=== PATIENT | female | born 1945 | race Hispanic/Latino ===

== ENCOUNTER 2017-01-05 06:08 | Inpatient (IN) | payer MEDICARE ==
[2017-01-05 06:17] VITALS: BMI 34.7
--- NOTE | 2017-01-05 07:18 | ED PDOC ---
Arrival/HPI - General Chief Complaint: Lower Extremity Problem/Injury Time Seen by Provider: 01/05/17 07:01 Historian: Patient, Family (Son) - History of Present Illness Time/Duration: Other (Last night) Symptom Onset: Gradual Symptom Course: Worsening Severity Level: Moderate Activities at Onset: Rest Associated Symptoms (Text): 01/05/17 07:15 Patient reports that she is unable to ambulate since last night. She states that she was sitting in a recliner last evening and her son had to get her into bed. She tried to get up at approximately 1 AM to go to the bathroom and was unable to do so. She is currently unable to ambulate. She arrived via ambulance. There is a history of Parkinson's disease. She has been taking her medication. Son reports that last week she was at her sister's house and was fine. There was a fall several weeks ago with a minor injury to her left knee, but she has been ambulating since then. No cough congestion or URI. No chest pain palpitations or dyspnea. No abdominal pain nausea or vomiting. No genitourinary symptoms. No fever or chills. Past Medical History - Cardiac Hx Cardiac Disorders: No - Pulmonary Hx Respiratory Disorders: No - Neurological Hx Parkinson's Disease: Yes - HEENT Hx HEENT Disorder: No - Renal Hx Renal Disorder: No - Endocrine/Metabolic Hx Endocrine Disorders: No - Hematological/Oncological Hx Blood Disorders: No - Integumentary Hx Dermatological Disorder: No - Musculoskeletal/Rheumatological Hx Musculoskeletal Disorders: No - Gastrointestinal Hx Gastrointestinal Disorders: No - Genitourinary/Gynecological Hx Genitourinary Disorders: No - Psychiatric Hx Psychophysiologic Disorder: No Hx Substance Use: No Family/Social History - Physician Review Nursing Documentation Reviewed: Yes Family/Social History: Unknown Family HX Smoking Status: Never Smoked Hx Alcohol Use: No Hx Substance Use: No Allergies/Home Meds Allergies/Adverse Reactions: Allergies Penicillins Allergy (Verified 01/05/17 06:17) RASH childhood Home Medications: Home Meds Medication Instructions Recorded Confirmed Amantadine [Amantadine HCl] 100 mg PO BID 01/05/17 01/05/17 Carbidopa/Levodopa 25/100 mg 1 tab PO BID 01/05/17 01/05/17 [Sinemet] Carbidopa/Levodopa 50/200 CR 1 tab PO DAILY 01/05/17 01/05/17 [Sinemet] Carbidopa/Levodopa [Sinemet Cr 25 150 mg PO QID 01/05/17 01/05/17 mg-100 mg] Pkamipexole 1.5 mg PO TID 01/05/17 01/05/17 Review of Systems - Physician Review All systems were reviewed & negative as marked: Yes - Review of Systems Constitutional: Fatigue. absent: Fevers Respiratory: Normal Cardiovascular: Normal Gastrointestinal: Normal Genitourinary Female: Normal Skin: Normal Neurological: Gait Changes. absent: Headache, Dizziness, Focal Weakness, Speech Changes, Facial Droop, Disequilibrium, Seizure Physical Exam Vital Signs Temp Pulse Resp BP Pulse Ox 01/05/17 07:16 68 18 137/69 96 01/05/17 07:11 97.4 F L 01/05/17 06:19 97.8 F 74 18 156/80 H 95 Temperature: Afebrile Blood Pressure: Hypertensive Pulse: Regular Respiratory Rate: Normal Appearance: Positive for: Well-Appearing, Non-Toxic, Comfortable Pain Distress: None Mental Status: Positive for: Alert and Oriented X 3 - Systems Exam Head: Present: Atraumatic, Normocephalic Pupils: Present: PERRL Extroacular Muscles: Present: EOMI Conjunctiva: Present: Normal Ears: Present: NORMAL TM, Normal Canal. No: Erythema Mouth: Present: Moist Mucous Membranes Pharnyx: No: ERYTHEMA, EXUDATE, TONSILS ENLARGED Neck: Present: Normal Range of Motion Respiratory/Chest: Present: Clear to Auscultation, Good Air Exchange, Decreased Breath Sounds. No: Respiratory Distress, Accessory Muscle Use Cardiovascular: Present: Regular Rate and Rhythm, Normal S1, S2. No: Murmurs Abdomen: Present: Normal Bowel Sounds. No: Tenderness, Distention, Peritoneal Signs, Rebound, Guarding Back: Present: Normal Inspection Upper Extremity: Present: Normal Inspection. No: Cyanosis, Edema Lower Extremity: Present: Normal Inspection. No: Edema Neurological: Present: GCS=15, CN II-XII Intact, Speech Normal, Motor Func Grossly Intact, Normal Sensory Function, Normal Cerebellar Funct. No: Gait Normal Skin: Present: Warm, Dry, Normal Color. No: Rashes Psychiatric: Present: Alert, Oriented x 3, Normal Insight, Normal Concentration Medical Decision Making ED Course and Treatment: 01/05/17 07:29 EKG shows normal sinus rhythm rate approximately [address] or T-wave changes 01/05/17 08:[address]A Funes. Patient is unable to ambulate. Appears to be exacerbation of Parkinson's disease. No signs of infection. She will be placed on a [facility] floor. Consultation with neurology. - Lab Interpretations Lab Results: 01/05/17 07:15 01/05/17 07:15 Lab Results 01/05/17 08:00: Urine Color Yellow, Urine Appearance Clear, Urine pH 8.0, Ur Specific [place] 1.015, Urine Protein Negative, Urine Glucose (UA) Negative, Urine Ketones Negative, Urine Blood Negative, Urine Nitrate Negative, Urine Bilirubin Negative, Urine Urobilinogen 0.2, Ur Leukocyte Esterase Negative 01/05/17 07:15: Sodium 143, Potassium 4.0, Chloride 109 H, Carbon Dioxide 29, Anion Gap 9 L, BUN 13, Creatinine 0.7, Est GFR ( Amer) > 60, Est GFR (Non -Af Amer) > 60, Random Glucose 99, Calcium 8.9, Total Bilirubin 0.9, AST 15, ALT 15, Alkaline Phosphatase 74, Lactate Dehydrogenase 362, Total Creatine Kinase 28 L, Troponin I 0.01, Total Protein 6.4, Albumin 3.5, Globulin 2.9, Albumin/Globulin Ratio 1.2 01/05/17 07:15: WBC 5.9, RBC 4.03, Hgb 13.4, Hct 39.2, MCV 97.3, MCH 33.3, MCHC 34.2, RDW 13.6, Plt Count 242, MPV 9.1, Gran % 77.8 H, Lymph % (Auto) 15.0 L, [place] % (Auto) 4.7, Eos % (Auto) 2.2, Baso % (Auto) 0.3, Gran # 4.60, Lymph # 0.9 L, [place] # 0.3, Eos # 0.1, Baso # 0.02 - RAD Interpretation Radiology Orders: 01/05/17 07:11 CHEST PORTABLE [RAD] Stat Chest 1 view shows no infiltrate effusion or cardiomegaly. 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 Ulcer: No History Surgical Site Infection Following: None - Disposition Have Diagnosis and Disposition been Completed?: Yes Diagnosis: Parkinsons disease, Weakness Disposition: HOSPITALIZED Disposition Time: 08:20 Patient Plan: Observation Condition: FAIR Discharge Instructions (ExitCare): Weakness (ED) Referrals: Srini Funes MD [Primary Care Provider] - Follow up with primary
[2017-01-05 07:30] LABS: ADD MANUAL DIFF? NO
[2017-01-05 07:40] LABS: BASO # 0.02 K/mm3 (0.0-2.0); BASO % 0.3 % (0.0-3.0); EOS # 0.1 (0.0-0.7); EOS % 2.2 % (1.5-5.0); GRAN % 77.8 % (50.0-68.0); HEMATOCRIT 39.2 % (36.0-48.0); LYMPH # 0.9 (1.2-3.4); MEAN CELL VOLUME 97.3 fL (80.0-105.0); MEAN CORPUSCULAR HEMOGLOBIN 33.3 pg (25.0-35.0); MEAN CORPUSCULAR HGB CONC 34.2 g/dl (31.0-37.0); MEAN PLATELET VOLUME 9.1 fl (7.0-11.0); MONO # 0.3 (0.1-0.6); MONO % 4.7 % (1.0-6.0); PLATELET COUNT 242 10^3/uL (120.0-450.0); RED CELL DISTRIBUTION WIDTH 13.6 % (11.5-14.5); WHITE BLOOD COUNT 5.9 10^3/ul (4.5-11.0)
[2017-01-05 07:44] LABS: ALB/GLOB RATIO 1.2 (1.1-1.8); ALKALINE PHOSPHATASE 74 U/L (38-133); ALT/SGPT 15 U/L (7-56); AST/SGOT 15 U/L (15-39); BILIRUBIN,TOTAL 0.9 mg/dL (0.2-1.3); BLOOD UREA NITROGEN 13 mg/dL (7-21); CALCIUM 8.9 mg/dL (8.4-10.5); CARBON DIOXIDE 29 mmol/L (21-33); CHLORIDE 109 mmol/L (98-107); GFR AFRICAN-AMERICAN > 60; GLUCOSE,RANDOM 99 mg/dL (70-110); SODIUM 143 mmol/L (132-148); TOTAL PROTEIN 6.4 g/dL (5.8-8.3)
[2017-01-05 07:59] LABS: TROPONIN I 0.01 ng/mL
[2017-01-05 08:06] LABS: URINE BILIRUBIN NEGATIVE (NEGATIVE); URINE BLOOD NEGATIVE (NEGATIVE); URINE GLUCOSE (UA) NEGATIVE (NEGATIVE); URINE KETONE NEGATIVE (NEGATIVE); URINE LEUKOCYTE ESTERASE NEGATIVE Leu/uL (NEGATIVE); URINE PROTEIN NEGATIVE mg/dL (<30 mg/dL); URINE UROBILINOGEN 0.2 E.U./dL (<1 E.U./dL)
[2017-01-05 08:12] LABS: URINE APPEARANCE CLEAR (CLEAR); URINE COLOR YELLOW (YELLOW)
--- NOTE | 2017-01-05 08:28 | RAD ---
HISTORY: weak COMPARISON: No prior. FINDINGS: LUNGS: The right lung is clear. There is left basilar atelectasis/ scarring. PLEURA: No significant pleural effusion identified, no pneumothorax apparent. CARDIOVASCULAR: Normal. OSSEOUS STRUCTURES: Status post posterior spinal fixation in the lumbar spine. Surgical clips in the right upper quadrant are related to prior cholecystectomy. VISUALIZED UPPER ABDOMEN: Normal. OTHER FINDINGS: None. IMPRESSION: Left basilar atelectasis/scarring. No acute findings.
[2017-01-05] MEDS: Carbidopa/Levodopa 25/100 CR PO SCH ×2 (10:15→18:11)
--- NOTE | 2017-01-05 11:20 | HP ---
HISTORY OF PRESENT ILLNESS: The patient is a 71-year-old female currently in the Emergency Room who was alert and oriented x 3, complains of inability to ambulate. The patient says she is unable to am bulate since last night. She was sitting in a recliner and tried to get up and was unable to do so, and her son helped her to get into bed. She tried to get up at approximately 1 a.m. to go to the [facility] and was unable to do so. The patient presented to the Emergency Room with the above complaint. REVIEW OF SYSTEMS: Otherwise, is entirely unremarkable. ALLERGIES: PENICILLIN. PAST MEDICAL HISTORY: Remarkable for Parkinson's. SOCIAL HISTORY: No history of substance or alcohol abuse. FAMILY HISTORY: Noncontributory. PHYSICAL EXAMINATION: VITAL SIGNS: Temperature of 97.8, pulse rate of 74, blood pressure 137/69, respiratory rate of 18, a nd an O2 saturation of 96% on room air. HEENT: PERRLA, EOMI. No icterus present. NECK: Supple with a full range of motion. No bruits or adenopathy are appreciated. LUNGS: Clear to auscultation and percussion bilaterally. HEART: Regular rate and rhythm. No murmurs, rubs, or gallops. ABDOMEN: Soft. It is benign. It is nontender. There is no organomegaly. Bowel sounds are normoac tive. EXTREMITIES: Show no edema. Good DP and PT pulses. Motor is 5/5 throughout. NEUROLOGIC: There are no focal motor deficits. LABORATORY VALUES: WBC of 5.9, hemoglobin and hematocrit of 13.4 and 39.2. Chemistry shows normal w ith the exception of a total CK which is 28 which is low. Chest x-ray is unremarkable. Urinalysis i s completely normal. PROVISIONAL DIAGNOSES: 1. Parkinson's. 2. Inability to ambulate. Dr. Goyal, her neurologist, has been consulted and will come in to see the patient. Srini Funes MD cc: [id number] TT: 01/05/2017 11:19:37 nj
[2017-01-05] MEDS ORDERED: Pneumococcal 23-Valent Vaccine IM ONE (14:26)
[2017-01-05] MEDS: Carbidopa/Levodopa/Entacapone 37.5mg-150mg-200mg PO SCH ×2 (18:11→22:29)
--- NOTE | 2017-01-05 19:03 | CARD ---
APPROVED REPORT EKG Measurement Heart [id number] OR [id number] <Conclusion> Normal sinus rhythm Normal ECG
[2017-01-05] MEDS: Carbidopa/Levodopa 50/200 CR PO SCH (22:29)
[2017-01-06] MEDS: Carbidopa/Levodopa/Entacapone 37.5mg-150mg-200mg PO SCH ×5 (06:22→21:58)
[2017-01-06 08:00] LABS: BLOOD UREA NITROGEN 9 mg/dL (7-21); CALCIUM 9.1 mg/dL (8.4-10.5); CARBON DIOXIDE 29 mmol/L (21-33); CHLORIDE 106 mmol/L (98-107); GFR AFRICAN-AMERICAN > 60; GLUCOSE,RANDOM 87 mg/dL (70-110); POTASSIUM 3.9 mmol/L (3.6-5.0); SODIUM 141 mmol/L (132-148)
[2017-01-06 08:44] LABS: MEAN CELL VOLUME 97.1 fL (80.0-105.0); MEAN CORPUSCULAR HEMOGLOBIN 32.8 pg (25.0-35.0); MEAN CORPUSCULAR HGB CONC 33.8 g/dl (31.0-37.0); MEAN PLATELET VOLUME 9.1 fl (7.0-11.0); RED CELL DISTRIBUTION WIDTH 13.6 % (11.5-14.5)
[2017-01-06] MEDS: Carbidopa/Levodopa 25/100 CR PO SCH ×2 (11:10→17:47)
[2017-01-06] MEDS: Carbidopa/Levodopa 50/200 CR PO SCH (21:58)
--- NOTE | 2017-01-06 22:46 | CON ---
DATE: 01/06/2017 HISTORY OF PRESENT ILLNESS: This is a 71-year-old female with a past medical history of Parkinson di britney and came to the hospital because she was unable to ambulate. The patient was sitting in a recl iner last evening and her son had to get her into the bed. She tried to get up approximately 1:00 a. m. in the bathroom and was unable to do so and unable to ambulate. The patient came here via ambulan ce and I was called to evaluate the patient. PAST MEDICAL HISTORY: Parkinson disease. ALLERGIES: PENICILLIN. HOME MEDICATIONS: The patient is on carbidopa/levodopa and Sinemet. REVIEW OF SYSTEMS: A 10-point review of systems was negative. PHYSICAL EXAMINATION: VITAL SIGNS: Blood pressure 156/80. HEENT: Normocephalic, atraumatic. NECK: Supple. NEUROLOGIC: Awake, alert, oriented x 3. No aphasia. Cranial nerves II through XII were tested. Pu pils reactive. EOM intact. Visual magana full. No facial asymmetry. Tongue midline. Motor examin ation: Moves all the extremities spontaneously. Deep tendon reflexes 1+. Both plantars downgoing. Sensory appears intact. Cerebellar and gait deferred. LABORATORY DATA: WBC 5.9, hemoglobin 13.4, hematocrit 39.2, platelet 242. Sodium 143, potassium 4, chloride is 109, CO2 of 29, glucose 99, BUN 13, creatinine 0.7. IMPRESSION: Parkinson disease and I do not find any rigidity and needs physical therapy for am bulation. Will followup. Buck Watt MD cc: [id number] TT: 01/06/2017 22:45:42 Confirmation # [id number] Dictation # [id number]
[2017-01-07] MEDS: Carbidopa/Levodopa/Entacapone 37.5mg-150mg-200mg PO SCH ×5 (05:36→21:38)
[2017-01-07 07:16] LABS: HEMATOCRIT 39.5 % (36.0-48.0); MEAN CELL VOLUME 96.1 fL (80.0-105.0); MEAN CORPUSCULAR HEMOGLOBIN 32.8 pg (25.0-35.0); MEAN CORPUSCULAR HGB CONC 34.2 g/dl (31.0-37.0); MEAN PLATELET VOLUME 9.2 fl (7.0-11.0); RED CELL DISTRIBUTION WIDTH 13.6 % (11.5-14.5); WHITE BLOOD COUNT 5.6 10^3/ul (4.5-11.0)
[2017-01-07 07:36] LABS: BLOOD UREA NITROGEN 14 mg/dL (7-21); CARBON DIOXIDE 28 mmol/L (21-33); CHLORIDE 106 mmol/L (98-107); GFR AFRICAN-AMERICAN > 60; GLUCOSE,RANDOM 110 mg/dL (70-110); POTASSIUM 3.7 mmol/L (3.6-5.0); SODIUM 140 mmol/L (132-148)
[2017-01-07] MEDS: Carbidopa/Levodopa 25/100 CR PO SCH ×2 (09:16→17:35)
--- NOTE | 2017-01-07 13:27 | PN ---
DATE: 01/07/2017 SUBJECTIVE: The patient seen and examined at bedside on the general medical melendez. No acute events o vernight. She remains afebrile and hemodynamically stable. The patient is more ambulatory since adm ission and is participating with physical therapy. Recommendations have been made for TCU placement. Otherwise, the patient states she feels okay and offers no complaints. OBJECTIVE: VITAL SIGNS: Temperature 97.5, pulse 78, blood pressure 126/82, respiratory rate 20, oxygen saturati on 97% on room air. GENERAL: No apparent distress. HEENT: PERRL, EOMI. No scleral icterus. NECK: No JVD, no bruits. LUNGS: Clear to auscultation. CARDIOVASCULAR: Regular rate and rhythm. Normal S1 and S2. No murmurs, rubs, or gallops. ABDOMEN: Normoactive bowel sounds, soft, nontender, nondistended. EXTREMITIES: No edema. NEUROLOGIC: Awake, alert and oriented x 3. No focal motor deficits. LABORATORY DATA: CBC reviewed and unremarkable. BMP reviewed and unremarkable. ASSESSMENT: The patient is a 71-year-old woman with past medical history of Parkinson disease, who p resented to [facility] with a several day history of increasing low back pain and inabili ty to ambulate. PLAN: 1. Parkinson disease. Input from Dr. Watt of neurology noted and appreciated. The patient remain s on her home medications. Continue with PT/OT. An order has been placed for TCU evaluation. 2. Prophylaxis. Gastrointestinal prophylaxis not indicated as patient is eating. Deep venous throm bosis prophylaxis not indicated as patient is ambulatory. CODE STATUS: Full code. Denver Funes MD cc: [id number] TT: 01/07/2017 13:26:25 Confirmation # [id number] Dictation # [id number] en
--- NOTE | 2017-01-07 17:11 | PN ---
DATE: 01/07/2017 CHIEF COMPLAINT: Follow up for Parkinson's and inability to ambulate. SUBJECTIVE: The patient seen and examined at bedside. She is doing much better. She is slow to amb ulate, has some mild parkinsonism features. She is on her Sinemet CR as well as ____ Mirapex. No ac zuni events overnight. ALLERGIES: PENICILLIN. PAST MEDICAL HISTORY: History of Parkinson disease and chronic deconditioned state. SOCIAL HISTORY: No illicit drug use, smoking, or ETOH abuse. FAMILY HISTORY: Noncontributory. REVIEW OF SYSTEMS: A 14-point review of systems negative except as listed in the HPI. PHYSICAL EXAMINATION: VITAL SIGNS: Temperature of 97.5, pulse rate is 78, blood pressure 126/82, respiratory rate 20, oxyg en 97% on room air. GENERAL: The patient is sitting up in bed, no acute distress. HEENT: Atraumatic, normocephalic. PERRLA. Extraocular muscles intact. NECK: Supple, no JVD, no adenopathy noted. LUNGS: Clear to auscultation. No adventitious sounds. HEART: S1, S2, normal rate and rhythm. No murmurs, rubs, or gallops. ABDOMEN: Soft, nontender, nondistended. Bowel sounds are present. EXTREMITIES: No clubbing, no cyanosis. Peripheral pulses 2+ felt bilaterally. NEUROLOGIC: The patient is alert, oriented to person, place, month and year. Recall at 5 minutes 0/ 3, poor attention span, slow thought process, cranial nerves II through XII are intact. MOTOR: Slight increased tone throughout. Mild cogwheel rigidity at the wrists. Moves all extremiti es equally, COORDINATION: [id number] intact. SENSORY: Light touch, pinprick, proprioception, vibrations intact. DTRs are 2+ throughout and 1 at the ankles. GAIT: Deferred for now. LABORATORIES: Sodium is 140, potassium ____.7, chloride 106, carbon dioxide 28, BUN of 14, creatinin e 0.7, random glucose 90. ASSESSMENT AND PLAN: This is a 71-year-old woman with history of Parkinson disease on Stalevo and Si nemet-CR as well as Mirapex who follows with neurologist, Dr. Goyal, came in with inability to ambu late and generalized weakness. Currently, at this time her parkinsonism has played a role in her darlene bility to ambulate and make her deconditioned. I feel at this time she will benefit from subacute re hab for coordination and gait and muscle strengthening. At this time, continue with her Sinemet-CR a s well as her Stalevo and Mirapex provided by her neurologist. Continue her present medical manageme nt. No further neurological workup needed at this time. We will sign off. Please reconsult if nece ssary. Thank you for this consult. Madhu Watt MD cc: [id number] TT: 01/07/2017 17:10:40 Confirmation # [id number] Dictation # [id number] jn
[2017-01-07] MEDS: Carbidopa/Levodopa 50/200 CR PO SCH (21:38)
[2017-01-08] MEDS: Carbidopa/Levodopa/Entacapone 37.5mg-150mg-200mg PO SCH ×5 (06:44→21:42)
[2017-01-08 09:20] LABS: HEMATOCRIT 41.2 % (36.0-48.0); MEAN CELL VOLUME 95.4 fL (80.0-105.0); MEAN CORPUSCULAR HEMOGLOBIN 33.1 pg (25.0-35.0); MEAN CORPUSCULAR HGB CONC 34.7 g/dl (31.0-37.0); MEAN PLATELET VOLUME 9.2 fl (7.0-11.0); RED CELL DISTRIBUTION WIDTH 13.4 % (11.5-14.5); WHITE BLOOD COUNT 6.8 10^3/ul (4.5-11.0)
[2017-01-08 09:36] LABS: BLOOD UREA NITROGEN 12 mg/dL (7-21); CALCIUM 9.1 mg/dL (8.4-10.5); CARBON DIOXIDE 25 mmol/L (21-33); CHLORIDE 107 mmol/L (95-110); GFR AFRICAN-AMERICAN > 60; GLUCOSE,RANDOM 189 mg/dL (70-110); POTASSIUM 4.1 mmol/L (3.6-5.0); SODIUM 139 mmol/L (132-148)
--- NOTE | 2017-01-08 09:40 | PN ---
DATE: 01/08/2017 SUBJECTIVE: The patient seen and examined at bedside on the general medical melendez. No acute events o vernight. She remains afebrile and hemodynamically stable. Per discussion with the nursing staff, t he patient does have some moments of intermittent confusion, particularly overnight, but otherwise th ere have been no acute issues. Input from Dr. Watt is also noted and recommendations are made for continued rehab and patient is pending TCU evaluation. OBJECTIVE: VITAL SIGNS: Temperature 98.6, pulse 84, blood pressure 156/74, respiratory rate 18, oxygen saturati on 94% on room air. GENERAL: No apparent distress. HEENT: PERRL. EOMI. No scleral icterus. NECK: No JVD, no bruits. LUNGS: Clear to auscultation. CARDIOVASCULAR: Regular rate and rhythm, normal S1 and S2. No murmurs, rubs or gallops. ABDOMEN: Normoactive bowel sounds, soft, nontender, nondistended. EXTREMITIES: No edema. NEUROLOGIC: Awake, alert and oriented x 3. No focal motor deficits. LABORATORY DATA: Morning labs are pending. ASSESSMENT: The patient is a 71-year-old woman with Parkinson disease who presents to [facility] with a several day history of increasing low back pain and inability to ambulate, who is now clinically improving and pending transitional care unit evaluation. PLAN: 1. Parkinson disease. Input from Dr. Watt of neurology noted and appreciated. Continue with curr ent medications. Continue with PT/OT. 2. Prophylaxis. GI prophylaxis not indicated as patient is eating. Continue with Venodynes for DVT prophylaxis. CODE STATUS: Full code. Denver Funes MD cc: [id number] TT: 01/08/2017 09:39:50 Confirmation # [id number] Dictation # [id number] mn
[2017-01-08] MEDS: Carbidopa/Levodopa 25/100 CR PO SCH ×2 (11:25→17:33)
[2017-01-08] MEDS: Carbidopa/Levodopa 50/200 CR PO SCH (21:42)
[2017-01-09] MEDS: Carbidopa/Levodopa/Entacapone 37.5mg-150mg-200mg PO SCH ×5 (05:48→21:32)
[2017-01-09 08:06] LABS: HEMATOCRIT 40.5 % (36.0-48.0); MEAN CELL VOLUME 98.3 fL (80.0-105.0); MEAN CORPUSCULAR HEMOGLOBIN 33.7 pg (25.0-35.0); MEAN CORPUSCULAR HGB CONC 34.3 g/dl (31.0-37.0); MEAN PLATELET VOLUME 9.2 fl (7.0-11.0); RED CELL DISTRIBUTION WIDTH 13.3 % (11.5-14.5); WHITE BLOOD COUNT 6.8 10^3/ul (4.5-11.0)
[2017-01-09 08:12] LABS: BLOOD UREA NITROGEN 14 mg/dL (7-21); CARBON DIOXIDE 27 mmol/L (21-33); CHLORIDE 107 mmol/L (95-110); GFR AFRICAN-AMERICAN > 60; GLUCOSE,RANDOM 103 mg/dL (70-110); SODIUM 140 mmol/L (132-148)
--- NOTE | 2017-01-09 09:02 | PN ---
DATE: 01/09/2017 SUBJECTIVE: The patient is seen and examined at bedside on the general medical melendez. No acute event s overnight. She remains afebrile and hemodynamically stable and is pending evaluation for TCU for c ontinued physical therapy. OBJECTIVE: VITAL SIGNS: Temperature 98.8, pulse 68, blood pressure 118/65, respiratory rate 20, oxygen saturati on 95% on room air. GENERAL: No apparent distress. HEENT: PERRL. EOMI. No scleral icterus. NECK: No JVD, no bruits. LUNGS: Clear to auscultation. CARDIOVASCULAR: Regular rate and rhythm, normal S1, S2. No murmurs, rubs or gallops. ABDOMEN: Normoactive bowel sounds, soft, nontender, nondistended. EXTREMITIES: No edema. NEUROLOGIC: Awake, alert, and oriented x 3. No focal motor deficits. LABORATORY DATA: CBC unremarkable. BMP pending. ASSESSMENT: The patient is a 71-year-old woman with Parkinson's disease, who presented to [facility] with a several-day history of increasing low back pain and inability to ambulate, who is clinically improving and pending TCU evaluation for continued physical therapy. PLAN: 1. Parkinson's disease. Input from Dr. Watt of neurology noted and appreciated. Continue with cu rrent medications. Continue with PT/OT. 2. Prophylaxis. GI prophylaxis is not indicated, as the patient is eating. Continue with venodynes for DVT prophylaxis. CODE STATUS: Full code. Denver Funes MD cc: [id number] TT: 01/09/2017 09:01:39 Confirmation # [id number] Dictation # [id number] jn
[2017-01-09] MEDS: Carbidopa/Levodopa 25/100 CR PO SCH ×2 (10:19→18:37)
[2017-01-09] MEDS: Carbidopa/Levodopa 50/200 CR PO SCH (21:28)
[2017-01-10] MEDS: Carbidopa/Levodopa/Entacapone 37.5mg-150mg-200mg PO SCH ×4 (05:52→18:36)
--- NOTE | 2017-01-10 09:08 | PN ---
DATE: 01/10/2017 SUBJECTIVE: The patient is seen and examined at bedside on the general medical melendez. Overnight the patient was noted to become agitated and quite confused, requiring placement into a cyndee. This morning she is sitting up in her chair, appears much more calm, awake, and alert and offers no complaints. OBJECTIVE: VITAL SIGNS: Temperature 98, pulse 75, blood pressure 151/88, respiratory rate 20, oxygen saturation 96% on room air. GENERAL: No apparent distress. HEENT: PERRL. EOMI. No scleral icterus. NECK: No JVD, no bruits. LUNGS: Clear to auscultation. CARDIOVASCULAR: Regular rate and rhythm. Normal S1 and S2. ABDOMEN: Normoactive bowel sounds, soft, nontender, nondistended. EXTREMITIES: No edema. NEUROLOGIC: Awake, alert and oriented x 3. No focal motor deficits. LABORATORY DATA: Morning labs are pending. ASSESSMENT: The patient is a 71-year-old woman with Parkinson's disease, who presents to [facility] with a several-day history of increasing low back pain and inability to ambulate secondary to exacerbation of her underlying Parkinson's disease who is presently clinically improving and pending TCU evaluation for continued physical therapy. PLAN: 1. Parkinson's disease. Input from Dr. Watt noted and appreciated. No further neurological interventions are indicated. Continue with current regimen. Continue with PT/OT. 2. Prophylaxis. GI prophylaxis is not indicated, as the patient is eating. Continue with venodynes for DVT prophylaxis. CODE STATUS: Full code. Denver Funes MD cc: [id number] TT: 01/10/2017 09:08:16 Confirmation # [id number] Dictation # [id number] jn SAM
[2017-01-10] MEDS: Carbidopa/Levodopa 25/100 CR PO SCH ×2 (09:55→18:36)
--- NOTE | 2017-01-10 14:06 | CP.PCM.PN ---
Subjective - Date & Time of Evaluation Date of Evaluation: 01/10/17 Time of Evaluation: 11:30 - Subjective Subjective: responded to code star. pt with hx of parkinsonism was walkin and lost balance and sat down on the floor. pt is latvian speaking, denies complaints.pt did not hit head ,no loss of conciousness. Objective - Vital Signs/Intake and Output Vital Signs (last 24 hours): Temp Pulse Resp BP Pulse Ox 98.0 F 75 20 151/88 H 96 01/10/17 07:44 01/10/17 07:44 01/10/17 07:44 01/10/17 07:44 01/10/17 07:44 Intake and Output: 01/10/17 01/10/17 06:59 18:59 Intake Total 240 360 Output Total 150 Balance 90 360 - Medications Medications: Current Medications Amantadine HCl (Amantadine 100 Mg Cap) 100 mg PO BID [facility] Last Admin: 01/10/17 09:55 Dose: 100 mg Carbidopa/Levodopa (Sinemet Cr) 1 tab PO BID [facility] Last Admin: 01/10/17 09:55 Dose: 1 tab Carbidopa/Levodopa (Sinemet Cr) 1 tab PO HS [facility] Last Admin: 01/09/17 21:28 Dose: 1 tab Carbidopa/Levodopa/Entacapone (Stalevo 150) 1 tab PO TID HERMAN Pramipexole Dihydrochloride (Mirapex) 1.5 mg PO TID [facility] Last Admin: 01/10/17 09:55 Dose: 1.5 mg Quetiapine Fumarate (Seroquel) 12.5 mg PO AMHS [facility] PRN Reason: Protocol - Labs Labs: 01/09/17 07:30 01/09/17 07:30 - Constitutional Appears: No Acute Distress - Head Exam Head Exam: NORMOCEPHALIC - Eye Exam Eye Exam: Normal appearance Pupil Exam: PERRL - ENT Exam ENT Exam: Mucous Membranes Moist - Neck Exam Neck Exam: Full ROM - Respiratory Exam Respiratory Exam: Clear to Ausculation Bilateral, NORMAL BREATHING PATTERN - Cardiovascular Exam Cardiovascular Exam: RRR, +S1, +S2 - GI/Abdominal Exam GI & Abdominal Exam: Soft, Normal Bowel Sounds - Extremities Exam Extremities Exam: Full ROM, Normal Inspection - Neurological Exam Neurological Exam: Awake, CN II-XII Intact, Oriented x3 - Psychiatric Exam Psychiatric exam: Normal Affect - Skin Skin Exam: Dry, Warm Assessment and Plan - Assessment and Plan (Free Text) Assessment: s/p fall no injury. hx of Parkinsonism. Plan: fall precautions.
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
[2017-01-10] MEDS: Carbidopa/Levodopa 50/200 CR PO SCH (22:20)
[2017-01-11 08:26] LABS: HEMATOCRIT 40.7 % (36.0-48.0); MEAN CELL VOLUME 98.3 fL (80.0-105.0); MEAN CORPUSCULAR HEMOGLOBIN 33.6 pg (25.0-35.0); MEAN CORPUSCULAR HGB CONC 34.2 g/dl (31.0-37.0); RED CELL DISTRIBUTION WIDTH 13.5 % (11.5-14.5); WHITE BLOOD COUNT 5.4 10^3/ul (4.5-11.0)
[2017-01-11 08:54] LABS: BLOOD UREA NITROGEN 15 mg/dL (7-21); CALCIUM 9.1 mg/dL (8.4-10.5); CARBON DIOXIDE 29 mmol/L (21-33); CHLORIDE 108 mmol/L (98-107); GFR AFRICAN-AMERICAN > 60; GLUCOSE,RANDOM 93 mg/dL (70-110); POTASSIUM 4.1 mmol/L (3.6-5.0); SODIUM 141 mmol/L (132-148)
--- NOTE | 2017-01-11 09:26 | PN ---
DATE: 01/11/2017 SUBJECTIVE: The patient seen and examined at bedside on the general medical melendez. Overnight, the kaylah barrera was noted to be persistently confused and agitated. She remains in a waist [place]. The patient was also evaluated by Dr. Linsey Sanches and started on Ativan and Seroquel. Otherwise, this morni ng, the patient offers no new complaints. OBJECTIVE: VITAL SIGNS: Temperature 98.4, pulse 60, blood pressure 137/70, respiratory rate 18, oxygen saturati on 96% on room air. GENERAL: No apparent distress. HEENT: PERRL. EOMI. No scleral icterus. NECK: No JVD, no bruits. LUNGS: Clear to auscultation. CARDIOVASCULAR: Regular rate and rhythm, normal S1, S2. ABDOMEN: Normoactive bowel sounds. Soft, nontender, nondistended. EXTREMITIES: No edema. NEUROLOGIC: Awake, alert, oriented to self and place. No focal motor deficits. LABORATORY DATA: CBC reviewed and unremarkable. BMP pending. ASSESSMENT: The patient is a 71-year-old woman with Parkinson's disease, who presented to [facility] with a several day history of low back pain and inability to ambulate secondary to exace rbation of her underlying Parkinson's disease, who is demonstrating clinical improvement in her mobil ity, but whose hospital course has been complicated by increased delirium and agitation. PLAN: 1. Parkinson disease. Input from Dr. Watt noted and appreciated. No new/further neurologic inter ventions have been recommended. Will continue with current regimen. Continue with PT/OT. 2. Altered mental status, etiology likely secondary to delirium/sundowning versus possible medicatio n-induced delirium. Input from Dr. Linsey Sanches noted and greatly appreciated. Continue with cu rrent medications as per Dr. Linsey Sanches. 3. Prophylaxis. GI prophylaxis not indicated as patient is eating. Continue with Venodynes for DVT prophylaxis. CODE STATUS: Full code. Denver Funes MD cc: [id number] TT: 01/11/2017 09:25:26 Confirmation # [id number] Dictation # [id number] mn
[2017-01-11] MEDS: Carbidopa/Levodopa 25/100 CR PO SCH ×2 (10:05→18:22)
[2017-01-11] MEDS: Carbidopa/Levodopa/Entacapone 37.5mg-150mg-200mg PO SCH ×3 (10:05→18:23)
--- NOTE | 2017-01-11 13:34 | PN ---
DATE: 01/11/2017 Shortly, patient is a 71-year-old female with long history of Parkinson's. The patient was seen yesterday for evaluation of psychotic symptoms. The patient was on higher dose of Parkinsonian drugs, which could be giving patient psychotic symptoms. This commercial lines underwriter initiated Seroquel 12.5 mg twi ce a day as well as Ativan. The patient was seen today and patient presented much better. The patie nt remembered this commercial lines underwriter. The patient is alert and oriented, pleasant, cooperative. Reported that she feels better. There are no signs of psychosis. As per report from the nursing staff, patient sl ept through the night and does not have any aggressive or agitated behavior. VITAL SIGNS: Stable. Temperature 98.4, pulse is 60, blood pressure 137/70, respirations 18. MEDICATIONS: Reviewed. The patient is on amantadine 100 mg twice a day, Sinemet, Ativan 0.5 mg twic e a day and at the nighttime, Seroquel 12.5 mg twice a day. LABORATORIES: Reviewed from today, seems to be within normal limits. MENTAL STATUS EXAMINATION: As this commercial lines underwriter described above, the patient is pleasant and cooperative, alert and oriented. No signs of psychosis or agitation. Intermittent eye contact. Speech was leigh ann l rate, tone, quality, and quantity. Mood described "I feel fine." Affect was more reactive, mood c ongruent. The patient denied visual, auditory, or tactile hallucinations. There is no agitation or aggression. The patient presents much better today. Insight and judgment fair. Impulses are well c ontrolled. IMPRESSION: Rule out medication induced psychosis, rule out delirium. This commercial lines underwriter is waiting for ur inalysis to be taken because as per nursing staff, patient has full and dark urine sometimes urinary tract infection could also give psychotic symptoms and delirium. Meanwhile, continue current management for another 24 hours. We will start weaning patient off of Se roquel and we will see if patient will be responding well to that. If patient will start exhibiting the same symptoms, patient is to continue on the same regimen. We will follow up and advise edmund ward. Thank you very much for letting me participate in the care of your patient. Linsey Sanches MD cc: [id number] TT: 01/11/2017 13:34:10 Confirmation # [id number] Dictation # [id number] en
[2017-01-11] MEDS: Carbidopa/Levodopa 50/200 CR PO SCH (23:51)
[2017-01-12 08:48] LABS: HEMATOCRIT 41.1 % (36.0-48.0); MEAN CELL VOLUME 99.3 fL (80.0-105.0); MEAN CORPUSCULAR HEMOGLOBIN 33.3 pg (25.0-35.0); MEAN CORPUSCULAR HGB CONC 33.6 g/dl (31.0-37.0); MEAN PLATELET VOLUME 9.5 fl (7.0-11.0); RED CELL DISTRIBUTION WIDTH 13.5 % (11.5-14.5); WHITE BLOOD COUNT 5.6 10^3/ul (4.5-11.0)
[2017-01-12 08:52] LABS: BLOOD UREA NITROGEN 19 mg/dL (7-21); CALCIUM 8.9 mg/dL (8.4-10.5); CARBON DIOXIDE 28 mmol/L (21-33); CHLORIDE 106 mmol/L (95-110); GFR AFRICAN-AMERICAN > 60; GLUCOSE,RANDOM 85 mg/dL (70-110); POTASSIUM 3.7 mmol/L (3.6-5.0); SODIUM 140 mmol/L (132-148)
[2017-01-12] MEDS: Carbidopa/Levodopa 25/100 CR PO SCH ×2 (09:36→18:03)
[2017-01-12] MEDS: Carbidopa/Levodopa/Entacapone 37.5mg-150mg-200mg PO SCH ×3 (09:37→18:03)
--- NOTE | 2017-01-12 09:48 | PN ---
DATE: 01/12/2017 The patient is in room 563, bed 1. The patient is a 71-year-old female, confused, in no acute distress. There have been no acute events overnight. PHYSICAL EXAMINATION: VITAL SIGNS: Temperature of 97.4, pulse rate of 63, blood pressure 152/86, respiratory rate of 20 wi th an O2 saturation of 100% on room air. HEENT: PERRLA. EOMI. NECK: Supple with a full range of motion and no bruits. LUNGS: Clear to auscultation and percussion bilaterally. HEART: Regular rate and rhythm. No murmurs, rubs, or gallops. ABDOMEN: Soft. It is nontender. There is no organomegaly, and bowel sounds are normoactive. EXTREMITIES: Show no deformities or edema. NEUROLOGIC: The patient is intact. LABORATORY WORK: Shows a WBC of 5.6, hemoglobin of 13.8 and ____ 41.1. Chemistry is entirely within normal limits. BUN and creatinine are 19 and 0.7. Random glucose is 85. IMPRESSION: 1. Parkinson's disease. 2. Senile dementia. Currently, looking for placement for the patient in a rehab facility. Srini Funes MD cc: [id number] TT: 01/12/2017 09:47:28 Confirmation # [id number] Dictation # [id number] marley
--- NOTE | 2017-01-12 10:59 | PN ---
DATE: 01/12/2017 SUBJECTIVE: The patient was followed up today. The patient's mental status is improving. The patie nt's Parkinson symptoms are improving. The patient does not have any tremor. The patient knows that she is in the hospital, knows the date, does remember this keno writer. The patient reported that she sl ept well last night. The patient reported that staff treats her well. There are no signs of paranoi a, psychotic symptoms are much improving, but at the same time, the patient is still on waist [place]. The patient reported that her family is supportive and they come and visit her. This keno writer has imp ression that patient had medication-induced psychosis because the patient was on high dose of cristela onian drugs which could increase the dopamine level and give psychotic symptoms, which the patient ex perienced 2 days ago. At present moment, the patient is awaiting for subacute rehabilitation facilit . The patient needs to be off waist [place] for at least 24 hours. VITAL SIGNS: This keno writer reviewed vital signs. Vital signs seem to be stable. Temperature 97.4, bl ood pressure 152/86, respirations 20, oxygen saturation is 100. MEDICATIONS: Reviewed. The patient is on amantadine 100 mg twice a day, levodopa/carbidopa and Sine met 3 times a day. The patient also is on Stalevo 150 mg 3 times a day, Ativan 0.5 mg 3 times a day was implemented, Mirapex 1.5 mg 3 times a day and Seroquel 12.5 mg in the morning time and at the nig httime. LABORATORY DATA: Reviewed. Chemistry reviewed. No acute changes. MENTAL STATUS EXAMINATION: The patient appears to be alert. The patient remembered this keno writer, bakari bello that she is in the hospital, the reason why she came to the hospital. Intermittent eye contact. Speech was low volume, increased in rate. Mood described, "I am fine." Affect was reactive, but con gruent. Thought process was more coherent and goal directed. Thought content: The patient denied v isual, auditory, or tactile hallucinations. No signs of paranoid or any psychotic symptoms. The pat ient denied thoughts of harming herself or others, denied intent or plan. Insight and judgment are i mproving. Impulses are well controlled. IMPRESSION: Medication-induced psychosis. The patient has history of Parkinson's as well as the pat ient was on higher doses of levodopa/carbidopa, which could give psychotic symptoms. The patient has multiple other problems. Please see notes for more detailed information. PLAN: Continue current management. The patient is on small dose of Seroquel 12.5 mg twice a day, th e treatment of choice for parkinsonian psychosis. We will continue that. At the same time, Ativan c ould be given for anxiety as well as muscle relaxant. The patient tolerates medication well. The kaylah barrera is not agitated. The patient is not aggressive. The patient should be off waist [place]. The p atshira did not verbalize any thoughts of killing herself or others, has good appetite, ate 100% of he r meal, in good behavioral control. This keno writer is recommending to see patient every other day to Dr Olinda Kay. Endorsements will be given. If patient will be discharged over the weekend, patient needs to be seen by a psychiatrist in subacute rehabilitation within 3 days. The patient should continue a ll of her medications. If patient will stay over the weekend in the facility, Dr. Kay will see ramesh silva every other day. Thank you very much for letting me participate in the care of your patient. Should you have any ques tions, give me a call back. Linsey Sanches MD cc: [id number] TT: 01/12/2017 10:58:20 Confirmation # [id number] Dictation # [id number] keenan
[2017-01-12] MEDS: Carbidopa/Levodopa 50/200 CR PO SCH (21:36)
[2017-01-13 07:42] VITALS: RESP 20
--- NOTE | 2017-01-13 09:47 | PN ---
DATE: 01/13/2017 SUBJECTIVE: The patient seen and examined at bedside on the general medical melendez. No acute events o vernight. She remains afebrile and hemodynamically stable. The patient has been off her Vest [place] for the last 24 hours and per discussion with the nursing staff, she has been much more calm overnigh t. This morning, she is sitting up comfortably in her bed, states she feels well and denies any comp laints. OBJECTIVE: VITAL SIGNS: Temperature 97.6, pulse 72, blood pressure 133/86, respiratory rate 20, oxygen saturati on 97% on room air. GENERAL: No apparent distress. HEENT: PERRL, EOMI. No scleral icterus. No conjunctival pallor. NECK: No JVD, no bruits. LUNGS: Clear to auscultation. CARDIOVASCULAR: Regular rate and rhythm. Normal S1, S2. ABDOMEN: Normoactive bowel sounds, soft, nontender, nondistended. EXTREMITIES: No edema. NEUROLOGIC: Awake, alert, and oriented to self and place. No focal motor deficits. LABORATORY DATA: Morning labs are pending. ASSESSMENT: The patient is a 71-year-old woman with Parkinson disease, who presented to [facility] with a several day history of low back pain and difficulty ambulating secondary to exacerb ation of her underlying Parkinson disease who has continued to demonstrate clinical improvement in he r mobility but whose hospital course was complicated by increased delirium and agitation, which is no w also clinically improving. PLAN: 1. Parkinson disease. Input from Dr. Watt noted and appreciated and no further neurological inter ventions are indicated. Continue with current regimen. Continue to encourage PT/OT. 2. Altered mental status with etiology likely secondary to delirium/sundowning versus possible medic ation-induced delirium. Input from Dr. Linsey Sanches noted and appreciated. Continue with curren t medications as per Dr. Linsey Sanches. Of note, the patient has been much more stable for the pr evious 24 hours and remains off Vest Seferino. 3. Prophylaxis. GI prophylaxis is not indicated as patient is eating. Continue with Venodynes for DVT prophylaxis. CODE STATUS: Full code. Denver Funes MD cc: [id number] TT: 01/13/2017 09:47:14 Confirmation # [id number] Dictation # [id number] cn
[2017-01-13] MEDS: Carbidopa/Levodopa 25/100 CR PO SCH ×2 (09:55→17:21)
[2017-01-13] MEDS: Carbidopa/Levodopa/Entacapone 37.5mg-150mg-200mg PO SCH ×3 (09:55→17:21)
[2017-01-13 10:08] LABS: HEMATOCRIT 43.4 % (36.0-48.0); MEAN CELL VOLUME 99.1 fL (80.0-105.0); MEAN CORPUSCULAR HEMOGLOBIN 33.8 pg (25.0-35.0); MEAN CORPUSCULAR HGB CONC 34.1 g/dl (31.0-37.0); MEAN PLATELET VOLUME 9.2 fl (7.0-11.0); RED CELL DISTRIBUTION WIDTH 13.3 % (11.5-14.5); WHITE BLOOD COUNT 5.4 10^3/ul (4.5-11.0)
[2017-01-13 10:12] LABS: BLOOD UREA NITROGEN 16 mg/dL (7-21); CALCIUM 8.9 mg/dL (8.4-10.5); CARBON DIOXIDE 27 mmol/L (21-33); CHLORIDE 106 mmol/L (95-110); GFR AFRICAN-AMERICAN > 60; GLUCOSE,RANDOM 109 mg/dL (70-110); POTASSIUM 3.9 mmol/L (3.6-5.0); SODIUM 140 mmol/L (132-148)
--- NOTE | 2017-01-13 11:39 | PN ---
DATE: 01/13/2017 The patient was seen and examined today. The patient is off [place] today. The patient does not have any agitation and aggression. The patient is socially appropriate. The patient's vital signs are s table. LABS: Reviewed. MEDICATIONS: Reviewed. The patient is on amantadine, levodopa/carbidopa at 1.5 mg 3 times a day. A lso, she is on Seroquel 12.5 mg in the morning time and at the nighttime. The patient denied being d epressed, denied thoughts of harming herself or others. As per nursing report, the patient has good appetite and sleep and at present moment, the patient will go to subacute rehabilitation. MENTAL STATUS EXAMINATION: The patient appears to be alert and oriented. The patient knows this wri ter by name. The patient knows the place where she is right now and the date. Intermittent eye cont act. Speech was monotonic and somewhat tremulous. Mood described as "I feel fine." Affect was cons tricted. Thought process was coherent and goal directed. Thought content: The patient denied visua l, auditory, or tactile hallucinations. Denied paranoid ideations. Psychotic symptoms are much bett er. The patient's confusion is much better. The patient denied thoughts of harming herself or other s, denied intent or plan. Insight and judgment are improving. Impulses are well controlled. IMPRESSION: The patient had episodes of delirium. Most likely it was related to parkinsonian medica tions. The patient is doing much better on small dose of Seroquel and Ativan. For additional inform ation about medical issues, please see Dr. Funes's notes. PLAN: At present moment, the patient is improving significantly. The patient is scheduled for going to subacute rehabilitation. The patient should be continued on Seroquel 12.5 mg twice a day at leas t for a week, Ativan 0.5 mg 3 times a day. The patient will be followed up with psychiatrist in the subacute rehabilitation within a week. Plan is to start weaning off Seroquel and monitor patient syed sely. Should you have any questions, give me a call back. This administrative underwriter will sign off. Thank you very much for letting me participate in the care of your patient. Linsey Sanches MD cc: [id number] TT: 01/13/2017 11:38:25 Confirmation # [id number] Dictation # [id number] rn
[2017-01-13] MEDS: Carbidopa/Levodopa 50/200 CR PO SCH (21:30)
[2017-01-14 09:14] LABS: HEMATOCRIT 41.4 % (36.0-48.0); MEAN CELL VOLUME 97.6 fL (80.0-105.0); MEAN CORPUSCULAR HEMOGLOBIN 33.5 pg (25.0-35.0); MEAN CORPUSCULAR HGB CONC 34.3 g/dl (31.0-37.0); MEAN PLATELET VOLUME 9.2 fl (7.0-11.0); RED CELL DISTRIBUTION WIDTH 13.3 % (11.5-14.5); WHITE BLOOD COUNT 5.1 10^3/ul (4.5-11.0)
[2017-01-14 09:20] LABS: BLOOD UREA NITROGEN 17 mg/dL (7-21); CALCIUM 8.9 mg/dL (8.4-10.5); CARBON DIOXIDE 27 mmol/L (21-33); CHLORIDE 105 mmol/L (98-107); GFR AFRICAN-AMERICAN > 60; GLUCOSE,RANDOM 114 mg/dL (70-110); SODIUM 139 mmol/L (132-148)
[2017-01-14] MEDS: Carbidopa/Levodopa/Entacapone 37.5mg-150mg-200mg PO SCH ×3 (10:49→18:13)
[2017-01-14] MEDS: Carbidopa/Levodopa 25/100 CR PO SCH ×2 (10:49→18:13)
--- NOTE | 2017-01-14 10:55 | PN ---
DATE: 01/14/2017 SUBJECTIVE: The patient is seen and examined at bedside on the general medical melendez. No acute event s overnight. She remains confused at times, but is much more calm than previously, and has not requi red a vest Seferino for the last 36 hours. This morning, she states she feels okay and wants to go home , but otherwise offers no complaints. OBJECTIVE: VITAL SIGNS: Temperature 98, pulse 64, blood pressure 127/60, respiratory rate 20, oxygen saturation 98% on room air. GENERAL: No apparent distress. HEENT: PERRL. EOMI. No scleral icterus. No conjunctival pallor. NECK: No JVD, no bruits. LUNGS: Clear to auscultation. CARDIOVASCULAR: Regular rate and rhythm. Normal S1 and S2. ABDOMEN: Normoactive bowel sounds, soft, nontender, nondistended. EXTREMITIES: No edema. NEUROLOGIC: Awake, alert, and oriented to person and place. No motor deficits. LABORATORY DATA: CBC reviewed and unremarkable. CMP reviewed and unremarkable. ASSESSMENT: The patient is a 71-year-old woman with Parkinson's disease, who presents to [facility] with a several-day history of low back pain and difficulty ambulating secondary to exacer bation of her underlying Parkinson's disease, who continues to demonstrate clinical improvement in he r mobility, and whose hospital course was complicated by increased delirium and agitation, who is now clinically improving, and pending placement to subacute rehabilitation. PLAN: 1. Parkinson's disease. Input from Dr. Watt noted and appreciated. No further neurological inter ventions are indicated. We will continue with current medications. Continue with PT/OT. 2. Altered mental status likely secondary to delirium/sundowning. Input from Dr. Linsey Sanches n oted and greatly appreciated. The patient has demonstrated significant improvement in her behavior o kwadwo the last 36 hours. Continue with current medications, as per Dr. Sanches. 3. Prophylaxis. GI prophylaxis is not indicated, as the patient is eating. Continue with venodynes for DVT prophylaxis. CODE STATUS: Full code. Denver Funes MD cc: [id number] TT: 01/14/2017 10:54:22 Confirmation # [id number] Dictation # [id number] marley
[2017-01-14] MEDS: Carbidopa/Levodopa 50/200 CR PO SCH (21:23)
[2017-01-15 08:14] LABS: HEMATOCRIT 42.6 % (36.0-48.0); MEAN CELL VOLUME 98.2 fL (80.0-105.0); MEAN CORPUSCULAR HEMOGLOBIN 34.6 pg (25.0-35.0); MEAN CORPUSCULAR HGB CONC 35.2 g/dl (31.0-37.0); RED CELL DISTRIBUTION WIDTH 13.2 % (11.5-14.5); WHITE BLOOD COUNT 6.3 10^3/ul (4.5-11.0)
[2017-01-15 08:23] LABS: BLOOD UREA NITROGEN 17 mg/dL (7-21); CALCIUM 9.1 mg/dL (8.4-10.5); CARBON DIOXIDE 28 mmol/L (21-33); CHLORIDE 106 mmol/L (98-107); GFR AFRICAN-AMERICAN > 60; GLUCOSE,RANDOM 99 mg/dL (70-110); POTASSIUM 3.7 mmol/L (3.6-5.0); SODIUM 140 mmol/L (132-148)
--- NOTE | 2017-01-15 11:33 | PN ---
DATE: 01/15/2017 SUBJECTIVE: The patient seen and examined at bedside on the general medical melendez. No acute events o vernight. She remains afebrile and hemodynamically stable. This morning, the patient appears very a wake and alert, and comfortable lying in bed. She has not required a vest [place] for the previous 48 hours and per discussion with the nursing staff, she appears to be much more calm than previously. O therwise, she states she feels well and offers no complaints. OBJECTIVE: VITAL SIGNS: Temperature 98.4, pulse 77, blood pressure 129/80, respiratory rate 20, oxygen saturati on 95% on room air. GENERAL: No apparent distress. HEENT: PERRL, EOMI. No scleral icterus. No conjunctival pallor. NECK: No JVD, no bruits. LUNGS: Clear to auscultation. CARDIOVASCULAR: Regular rate and rhythm. Normal S1 and S2. ABDOMEN: Normoactive bowel sounds, soft, nontender, nondistended. EXTREMITIES: No edema. NEUROLOGIC: Awake, alert and oriented to person and place. No motor deficits. LABORATORY DATA: CBC reviewed and unremarkable. BMP pending. ASSESSMENT: The patient is a 71-year-old woman with Parkinson disease, who presented to [facility] with a several day history of low back pain and difficulty ambulating secondary to exacerb ation of her underlying Parkinson disease, who is now clinically significantly improved and pending d ischarge to subacute rehabilitation. PLAN: 1. Parkinson disease. Input from Dr. Watt noted and appreciated and no further neurological inter ventions are indicated. Will continue with current medications. Continue with PT/OT. 2. Altered mental status, likely secondary to delirium/sundowning. Input from Dr. Linsey Sanches noted and greatly appreciated and the patient remains calm, awake, alert and oriented. Continue with current medications as per Dr. Linsey Sanches. 3. Prophylaxis. Gastrointestinal prophylaxis not indicated as patient is eating. Continue with roldan odynes for deep venous thrombosis prophylaxis. CODE STATUS: Full code. Denver Funes MD cc: [id number] TT: 01/15/2017 11:32:58 Confirmation # [id number] Dictation # [id number] en
[2017-01-15] MEDS: Carbidopa/Levodopa 25/100 CR PO SCH ×2 (11:35→19:04)
[2017-01-15] MEDS: Carbidopa/Levodopa/Entacapone 37.5mg-150mg-200mg PO SCH ×3 (11:35→19:04)
[2017-01-15] MEDS: Carbidopa/Levodopa 50/200 CR PO SCH (21:57)
[2017-01-16 07:47] VITALS: BP 135/78; PULSE 64; TEMP 97.5; O2SAT 97
[2017-01-16 08:13] LABS: HEMATOCRIT 41.2 % (36.0-48.0); MEAN CELL VOLUME 99.3 fL (80.0-105.0); MEAN CORPUSCULAR HGB CONC 34.2 g/dl (31.0-37.0); MEAN PLATELET VOLUME 9.3 fl (7.0-11.0); RED CELL DISTRIBUTION WIDTH 13.4 % (11.5-14.5); WHITE BLOOD COUNT 5.9 10^3/ul (4.5-11.0)
[2017-01-16 08:22] LABS: BLOOD UREA NITROGEN 17 mg/dL (7-21); CALCIUM 9.1 mg/dL (8.4-10.5); CARBON DIOXIDE 29 mmol/L (21-33); CHLORIDE 106 mmol/L (95-110); GFR AFRICAN-AMERICAN > 60; GLUCOSE,RANDOM 91 mg/dL (70-110); POTASSIUM 3.8 mmol/L (3.6-5.0); SODIUM 141 mmol/L (132-148)
--- NOTE | 2017-01-16 10:16 | PN ---
DATE: 01/16/2017 SUBJECTIVE: The patient seen and examined at bedside on the general medical melendez. No acute events o vernight. She remains afebrile and hemodynamically stable. The patient has remained calm for the pr evious 72 hours and has not required a vest [place]. This morning, she states she feels well and is an ticipating transfer to [facility] for continued physical therapy. OBJECTIVE: VITAL SIGNS: Temperature 97.5, pulse 64, blood pressure 135/78, respiratory rate 20, oxygen saturati on 97% on room air. GENERAL: No apparent distress. HEENT: PERRL, EOMI. No scleral icterus. No conjunctival pallor. NECK: Supple, full range of motion, no JVD, no bruits. LUNGS: Clear to auscultation. CARDIOVASCULAR: Regular rate and rhythm. Normal S1 and S2. ABDOMEN: Normoactive bowel sounds, soft, nontender, nondistended. EXTREMITIES: No edema. NEUROLOGIC: Awake, alert and oriented to person and place. No focal motor deficits. LABORATORY DATA: CBC reviewed and unremarkable. BMP pending. ASSESSMENT: The patient is a 71-year-old woman with Parkinson disease, who presents to [facility] with a several day history of low back pain and difficulty ambulating secondary to exacerba tion of her underlying Parkinson disease, who is now clinically improved and pending discharge to sub acute rehabilitation. PLAN: 1. Parkinson disease. Input from Dr. Watt of neurology noted and appreciated and no further inter ventions are indicated. Continue with current medications. Continue with PT/OT. 2. Altered mental status, likely secondary to delirium/sundowning. Input from Dr. Sanches noted and greatly appreciated and patient has had no further episodes of confusion or agitation since init iation of treatment with Dr. Linsey Sanches. 3. Prophylaxis. GI prophylaxis not indicated as patient is eating. Continue with venodynes for DVT prophylaxis. 4. Disposition. The patient is medically stable for discharge to subacute rehabilitation pending ac ceptance. CODE STATUS: Full code. Denver Funes MD cc: [id number] TT: 01/16/2017 10:15:25 Confirmation # [id number] Dictation # [id number] rn
[2017-01-16] MEDS: Carbidopa/Levodopa/Entacapone 37.5mg-150mg-200mg PO SCH ×2 (10:25→13:52)
[2017-01-16] MEDS: Carbidopa/Levodopa 25/100 CR PO SCH (10:32)
--- NOTE | 2017-01-17 08:59 | DS ---
ADMITTING DIAGNOSIS: Parkinson disease. DISCHARGE DIAGNOSIS: Parkinson disease. SECONDARY DIAGNOSES: Delirium. CONSULTATIONS: Dr. Sanches (psychiatry), Dr. Watt (neurology). IMAGING STUDIES: Chest x-ray which demonstrated no acute pathology. HISTORY OF PRESENT ILLNESS: The patient is a 71-year-old woman with a past medical history of Parris son disease who was brought to [facility] Emergency Department by her son for evaluation of a several day history of progressively worsening low back pain and inability to ambulate. The ramesh silva's son reported that for the week preceding their visit to the Emergency Department, the patient was noted to complain of increased low back pain with associated weakness. Her symptoms had progress ed over the following week to the point where she was no longer able to ambulate. Given her clinical deterioration, she was brought to the Emergency Department for evaluation. Upon arrival to the ED, she was noted to be afebrile and hemodynamically stable, and physical examination demonstrated profou nd weakness. Given her intractable pain and inability to ambulate, the patient was admitted to the [facility] medical melendez for management of exacerbation of her underlying Parkinson disease. HOSPITAL COURSE: While on the general medical melendez, the patient was resumed on her outpatient medica tions. Dr. Watt of neurology was consulted for further evaluation and recommendations as were phys ical therapy and occupational therapy. The first 24-36 hours of the patient's hospital stay were unr emarkable. However, on hospital day #4, she became markedly confused and agitated at night. The ramesh silva was also noted to pull on medical devices and, as such, the house physician was called for urgen t evaluation and the patient was placed in a vest [place] and given Ativan for sedation. The following day, Dr. Linsey Sanches of psychiatry was consulted and the patient was started on Ativan and Sero quel. Over the next 24-36 hours, her symptoms had significantly improved and she was no longer agita kelly overnight. The vest Seferino was removed and there were no further episodes of agitation/confusion overnight. By hospital day #8, she was deemed stable for discharge and was accepted to [facility] for c ontinued physical therapy. CONDITION: Fair, improved. DISPOSITION: To [facility]. DISCHARGE MEDICATIONS: Stalevo 150 mg p.o. b.i.d., Mirapex 1.5 mg p.o. t.i.d., Sinemet 25/100 mg p.o . t.i.d. FOLLOWUP: The patient to follow up with her PMD within 1 week of discharge from [facility]. The patien t to follow up with her neurologist, Dr. Goyal, as scheduled. Denver Funes MD cc: [id number] TT: 01/17/2017 08:58:40 mn
== END 2017-01-16 14:58 | DRG 57 ==
LOC: ED 06:08 → ERH 08:25 → 5RNO 09:51 → OBSVTOIN 01-07 09:30
PROVIDERS: ADMIT Student in an Organized Health Care Education/Training Program; ATTEND Student in an Organized Health Care Education/Training Program
DX: G20 Parkinson's disease (principal); F02.80 Dementia in other diseases classified elsewhere, unspecified severity, without behavioral disturbance, psychotic disturbance, mood disturbance, and anxiety; Z78.1 Physical restraint status; F29 Unspecified psychosis not due to a substance or known physiological condition; Z88.0 Allergy status to penicillin; R40.2412 Glasgow coma scale score 13-15, at arrival to emergency department; R53.81 Other malaise; M54.5 Low back pain

== ENCOUNTER 2017-05-27 13:57 | Emergency (ER) | payer MEDICARE ==
[2017-05-27 14:11] VITALS: BMI 30.9
[2017-05-27 14:24] VITALS: RESP 16; TEMP 98.2
[2017-05-27] MEDS ORDERED: TDAP Vaccine 0.5 mL Syr IM ONE (14:53)
--- NOTE | 2017-05-27 15:09 | ED PDOC ---
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 Otherwise: (-) loss of consciousness, (-) nausea, (-) vomiting, (-) severe headache, (-) other injury, (-) neck pain, (-) subjective neurologic deficit, (-) anticoagulants. Has no history of prior significant head injury. Past Medical History - Provider Review Nursing Documentation Reviewed: Yes - Infectious Disease Hx of Infectious Diseases: None - Cardiac Hx Cardiac Disorders: No - Pulmonary Hx Respiratory Disorders: No - Neurological Hx Neurological Disorder: Yes Hx Parkinson's Disease: Yes (dx 20 yrs ago) - HEENT Hx HEENT Disorder: Yes (eyeglasses) - Renal Hx Renal Disorder: No - Endocrine/Metabolic Hx Endocrine Disorders: No - Hematological/Oncological Hx Blood Disorders: No - Integumentary Hx Dermatological Disorder: Yes Other/Comment: multiple skin discolorations ble, multiple age spots to face - Musculoskeletal/Rheumatological Hx Musculoskeletal Disorders: Yes Hx Falls: Yes (6 yrs ago and 10 yrs ago) - Gastrointestinal Hx Gastrointestinal Disorders: No - Genitourinary/Gynecological Hx Genitourinary Disorders: No - Psychiatric Hx Psychophysiologic Disorder: No Hx Substance Use: No - Surgical History Other/Comment: lower back and r wrist - Anesthesia Hx Anesthesia: Yes Hx Anesthesia Reactions: No Family/Social History - Physician Review Nursing Documentation Reviewed: Yes Family/Social History: Unknown Family HX Smoking Status: Never Smoked Hx Alcohol Use: No Hx Substance Use: No Allergies/Home Meds Allergies/Adverse Reactions: Allergies Penicillins Allergy (Intermediate, Verified 05/27/17 14:05) RASH childhood Home Medications: Home Meds Medication Instructions Recorded Confirmed Amantadine [Amantadine HCl] 100 mg PO BID 01/05/17 05/27/17 Carbidopa/Levodopa/Entacapone 1 tab PO 5XD 01/05/17 05/27/17 [Stalevo 150] Pramipexole [Mirapex] 1.5 mg PO TID 01/05/17 05/27/17 QUEtiapine [SEROquel] 50 mg PO BID 05/27/17 05/27/17 Review of Systems - Review of Systems Constitutional: Normal. absent: Fatigue, Weight Change, Fevers ENT: Normal. absent: Sore Throat, Rhinorrhea, Sinus Congestion Respiratory: Normal. absent: SOB, Cough, Sputum Cardiovascular: Normal. absent: Chest Pain, Palpitations, Edema Musculoskeletal: Normal, Arthralgias. absent: Back Pain, Neck Pain Skin: Normal, Laceration. absent: Rash, Pruritis, Skin Lesions Neurological: Normal. absent: Headache, Dizziness, Focal Weakness Physical Exam - Physical Exam Narrative Physical Exam (Text): 05/27/17 15:06 GENERAL APPEARANCE: Patient is awake, alert, oriented x 3, in no acute distress. SKIN: Warm, dry; (-) cyanosis, (+) 1 cm V shaped laceration with skin avulsion to the nasal bridge. HEAD: (-) swelling and tenderness, with no palpable bony defect. EYES: (-) conjunctival pallor, (-) scleral icterus, (-) nystagmus. ENMT: Mucous membranes moist. (-) Hernandez's sign. TMs: (-) blood. Nose: (- ) tenderness, (-) rhinorrhea. No oral trauma. Pharynx clear. Airway patent: (-) stridor. Full ROM of mandible without pain. NECK: (-) tenderness, (-) stiffness, (-) lymphadenopathy. CHEST AND RESPIRATORY: (-) chest wall tenderness. Lungs: (-) rales, (-) rhonchi, (-) wheezes; breath sounds equal bilaterally. HEART AND CARDIOVASCULAR: (-) irregularity; (-) murmur, (-) gallop. ABDOMEN AND GI: Soft; (-) tenderness. BACK: (-) tenderness. EXTREMITIES: (-) deformity, (-) tenderness, (-) limitation of motion NEURO AND PSYCH: GCS=15. Mental status as above. 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 EOMI. (-) facial asymmetry. Tongue and uvula midline. Strength 5/5 in all extremities. No gross sensory deficits. DTRs symmetric. 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 Plan : - CT head - CT maxillofacial - tdap IM - laceration repair 05/27/17 17:20 CT results d/w the patient. On re-evaluation, patient remains awake, alert and oriented x3 in no acute distress. Has no additional complaints. Advised to follow up with primary care physician in 1-2 days without fail. Return to the emergency room at any time for any new or worsening symptoms. Patient states she fully agrees with and understands discharge instructions. States that she agrees with the plan and disposition. Verbalized and repeated discharge instructions and plan. I have given the patient opportunity to ask any additional questions. - RAD Interpretation Narrative RAD Interpretations (Text): 05/27/17 17:17 CT HEAD w/o contrast : FINDINGS: HEMORRHAGE: No intracranial hemorrhage. BRAIN: No mass effect or edema. No atrophy or chronic microvascular ischemic changes. VENTRICLES: Unremarkable. No hydrocephalus. CALVARIUM: Unremarkable. PARANASAL SINUSES: Unremarkable as visualized. No significant inflammatory changes. MASTOID AIR CELLS: Unremarkable as visualized. No inflammatory changes. OTHER FINDINGS: None. IMPRESSION: No acute findings CT Maxillofacial : FINDINGS: NASAL BONES: Unremarkable. ORBITS: Unremarkable. PARANASAL SINUSES/ MASTOIDS: Clear. MAXILLA: Unremarkable. MANDIBLE/ TEMPOROMANDIBULAR JOINTS: Unremarkable. SKULL BASE: Unremarkable. TEMPORAL BONES: Middle ears and mastoid grossly unremarkable. OTHER FINDINGS: None. IMPRESSION: Unremarkable non contrast enhanced CT of the maxillofacial bones. Radiology Orders: 05/27/17 14:53 HEAD W/O CONTRAST [CT] Stat 05/27/17 14:54 MAXILLOFACIAL W/O CONTRAST [CT] Stat - Medication Orders Current Medication Orders: Discontinued Medications Tetanus/Reduced Diphtheria/Acell Pertussis (Boostrix Vaccine Inj) 0.5 ml IM .ONCE ONE Stop: 05/27/17 14:54 Last Admin: 05/27/17 15:31 Dose: 0.5 ml [facility] Immunization Data Document 05/27/17 15:31 HI (Rec: 05/27/17 15:33 HI [facility] [place]-[id number]) Immunization Data Vaccine Lot Number [id number] Vaccine Expiration Date 05/19/19 Site Given Right Deltoid Route Intramuscular Procedure: Wound Repair - Time Performed Time Performed: 16:00 - Time Out Time Out: Side verified, Site verified - Procedure Procedure: Wound Repair: nasal bridge laceration repair - Consent Obtained Consent obtained: Verbal - Performed by Performed by: Mid-level Provider - Indications Indication(s):: Laceration - Location Shape:: Other (V shaped) Dimensions Length cm: 1 cm Depth:: Epidermis - Anesthetic Technique Anesthetic Technique: Local Local/Regional Anesthetic:: Lidocaine 1% - Debris Debris:: None - Irrigated Irrigated with ml of normal saline: 50 ml - Complexity Complexity:: Simple (one layer) - Wound repair method Sutures:: # (4), Size (6-0 nylon), Technique (simple interrupted) - Complications Complications: none - Patient tolerated procedure Patient Tolerated Procedure:: Well - 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 Disposition/Present on Arrival - Present on Arrival Any Indicators Present on Arrival: No History of DVT/PE: No History of Uncontrolled Diabetes: No Urinary Catheter: No History of Decub. Ulcer: No History Surgical Site Infection Following: None - Disposition Have Diagnosis and Disposition been Completed?: Yes Diagnosis: Head injury, Facial laceration Disposition: HOME/ ROUTINE Disposition Time: 17:00 Patient Plan: Discharge Patient Problems: Current Active Problems Problem Status Onset Facial laceration Acute Head injury Acute Condition: STABLE Discharge Instructions (ExitCare): Head Injury (ED), Laceration (ED), Care For Your Stitches (ED) Print Language: [place] CITIZEN Additional Instructions: Thank you for letting us take care of you today. You were treated for head injury, facial laceration. The emergency medical care you received today was directed at your acute symptoms. laurent sutures removed after 5 days. Return to the Emergency Department if your symptoms worsen, do not improve, or if you have any other problems. Please contact your doctor in 2 days for re-evaluation and follow up. Bring any paperwork you were given at discharge with you along with any medications you are taking to your follow up visit. Our treatment cannot replace ongoing medical care by a primary care provider (PCP) outside of the emergency department. Thank you for allowing the [facility] team to be part of your care today. If you had a CT scan: A Radiologist will review the ED reading if any change in treatment is needed we will contact you. Referrals: PCP,NO [Primary Care Provider] - Follow up with primary Forms: [employer] (Kinyarwanda)
--- NOTE | 2017-05-27 16:49 | CT ---
PROCEDURE: CT HEAD WITHOUT CONTRAST. HISTORY: facial trauma COMPARISON: None available. TECHNIQUE: Axial computed tomography images were obtained through the head/brain without intravenous contrast. Radiation dose: Total exam DLP = 1705 mGy-cm. This CT exam was performed using one or more of the following dose reduction techniques: Automated exposure control, adjustment of the mA and/or kV according to patient size, and/or use of iterative reconstruction technique. FINDINGS: HEMORRHAGE: No intracranial hemorrhage. BRAIN: No mass effect or edema. No atrophy or chronic microvascular ischemic changes. VENTRICLES: Unremarkable. No hydrocephalus. CALVARIUM: Unremarkable. PARANASAL SINUSES: Unremarkable as visualized. No significant inflammatory changes. MASTOID AIR CELLS: Unremarkable as visualized. No inflammatory changes. OTHER FINDINGS: None. IMPRESSION: No acute findings
--- NOTE | 2017-05-27 16:53 | CT ---
PROCEDURE: CT MAXILLOFACIAL BONES WITHOUT CONTRAST HISTORY: facial trauma COMPARISON: None TECHNIQUE: Contiguous axial CT images of the maxillofacial bones were obtained. Coronal and sagittal reformats were generated. Radiation dose: Total exam DLP = 430 mGy-cm. This CT exam was performed using one or more of the following dose reduction techniques: Automated exposure control, adjustment of the mA and/or kV according to patient size, and/or use of iterative reconstruction technique. FINDINGS: NASAL BONES: Unremarkable. ORBITS: Unremarkable. PARANASAL SINUSES/ MASTOIDS: Clear. MAXILLA: Unremarkable. MANDIBLE/ TEMPOROMANDIBULAR JOINTS: Unremarkable. SKULL BASE: Unremarkable. TEMPORAL BONES: Middle ears and mastoid grossly unremarkable. OTHER FINDINGS: None. IMPRESSION: Unremarkable non contrast enhanced CT of the maxillofacial bones.
[2017-05-27 16:58] VITALS: O2SAT 95
[2017-05-27 18:26] VITALS: BP 134/82; PULSE 82
== END 2017-05-27 18:00 | disposition home or self-care (01) ==
LOC: ED 13:57
DX: S01.21XA Laceration without foreign body of nose, initial encounter (principal); W01.0XXA Fall on same level from slipping, tripping and stumbling without subsequent striking against object, initial encounter; Y92.480 Sidewalk as the place of occurrence of the external cause; G20 Parkinson's disease; Z88.0 Allergy status to penicillin; Z23 Encounter for immunization